=== PATIENT | male | born 1990 | race African-American/Black ===

== ENCOUNTER 2016-06-20 12:52 | Emergency (ER) | payer SELFPAY | END 2016-06-20 13:12 | disposition home or self-care (01) | LOC: ER 12:52 | DX: S46.811A Strain of other muscles, fascia and tendons at shoulder and upper arm level, right arm, initial encounter (principal); F17.200 Nicotine dependence, unspecified, uncomplicated; X58.XXXA Exposure to other specified factors, initial encounter | CPT/HCPCS: 96372; 99283; A9270-GY ==

== ENCOUNTER 2016-07-07 12:51 | Emergency (ER) | payer SELFPAY ==
[2016-07-07 12:32] LABS: INFLUENZA A SCREEN NEGATIVE (NEGATIVE); INFLUENZA B SCREEN NEGATIVE (NEGATIVE)
== END 2016-07-07 14:45 | disposition home or self-care (01) ==
LOC: ER 12:51
PROVIDERS: Physician Assistant
DX: B34.9 Viral infection, unspecified (principal)
CPT/HCPCS: 71020; 87804; 99284; A9270-GY